=== PATIENT | female | born 1955 | race Hispanic/Latino ===

== ENCOUNTER → 2017-06-22 | Day surgery (SDC) | payer BC ==
[2017-06-15 10:39] VITALS: BMI 28.3
[~2017-06-22] MED LIST: Propofol 10 mg/ml Inj (20 ML) ONE; Sodium Chloride 0.9% 1,000 ML IV SCH
[2017-06-22 13:15] VITALS: BP 136/80; PULSE 82; RESP 18; TEMP 97.9; O2SAT 100
== END | disposition home or self-care (01) ==
LOC: ENDO 09:58
PROVIDERS: ATTEND Internal Medicine Gastroenterology
DX: K21.0 Gastro-esophageal reflux disease with esophagitis (principal); K31.9 Disease of stomach and duodenum, unspecified; K64.8 Other hemorrhoids; K63.89 Other specified diseases of intestine; I10 Essential (primary) hypertension; K29.50 Unspecified chronic gastritis without bleeding
CPT/HCPCS: 43239; 45380; 88305; 88312; 88342; J2001; J2704; J7040 ×2